=== PATIENT | male | born 1995 | race Caucasian/White ===

== ENCOUNTER 2021-01-20 02:00 | Emergency (ER) | payer OTHER ==
[~2021-01-20] VITALS: Ht 175.3 cm; Wt 74.8 kg
[2021-01-20] MEDS ORDERED: TRAMADOL 50 MG50 MG PO (02:54)
[2021-01-20] MEDS ORDERED: FLEXERIL PO (02:54)
[2021-01-20 03:06] VITALS: BP 118/75
--- NOTE | 2021-01-21 09:52 | EKG ---
[place] [address] ELECTROCARDIOGRAM REPORT Name: LIZABETH GONZALEZ Room: [facility]#: [id number] Admission: 01/20/21 Attend Phys: Discharge: 01/20/21 Date of : [birth year] Date of Service: 01/20/21 0204 Report #: [id number] THIS REPORT FOR: //name// [facility] ED Test Date: 2021-01-20 Test Time: 02:04:29 Pat Name: LIZABETH GONZALEZ Department: Room: Gender: Clarity Developer: [place] : 1995 Requested By: Sonja Perez Order Number: [id number] MD: Ar Powell Measurements Intervals [place] Rate: 79 P: 80 IA: 167 QRS: 70 QRSD: 72 T: 52 QT: 348 QTc: 399 Interpretive Statements Sinus rhythm Anteroseptal infarct, old possible Baseline wander in lead(s) I,III,aVR,aVL,aVF,V3,V4 No previous ECG available for comparison Electronically Signed On 01-21-2021 9:51:58 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
== END 2021-01-20 03:06 | disposition home or self-care (01) ==
LOC: M.ERS 02:00
DX: R07.89 Other chest pain (principal)